=== PATIENT | female | born 1960 | race African-American/Black ===

== ENCOUNTER 2019-01-20 11:06 | Day surgery (SDC) | payer OTHER ==
[2019-01-16 12:01] VITALS: BMI 38.0
[~2019-01-20 11:06] MED LIST: BUPIVACAINE HCL/PF 0.25% (2.5MG/ML) 10 ML VIAL IJ ONE; IOHEXOL 180 MG/1 ML ML IJ ONE; SODIUM BICARBONATE 8.4% 50 MEQ/50 ML DISP.SYRIN IV ONE; TRIAMCINOLONE ACETONIDE 40 MG/ML 10 ML VIAL IJ ONE
[2019-01-20] MEDS ORDERED: ONDANSETRON 4 MG/2 ML VIAL IVPUSH PRN (13:32)
[2019-01-20] MEDS ORDERED: oxyCODONE HCL 5 MG TABLET PO PRN (13:32)
[2019-01-20] MEDS ORDERED: LACTATED RINGERS SOLUTION 1,000 ML IV SCH (13:45)
[2019-01-20] MEDS ORDERED: MIDAZOLAM HCL 2 MG/2 ML SINGLE DOSE VIAL ONE ×3 (14:18→15:14)
[2019-01-20] MEDS ORDERED: LIDOCAINE HCL 1% PRESERVATIVE FREE - 30ML VIAL ONE (14:37)
[2019-01-20] MEDS ORDERED: BUPIVACAINE HCL 0.25% 125 MG/50 ML VIAL ONE (14:37)
[2019-01-20] MEDS ORDERED: TRIAMCINOLONE ACET 40MG/1ML VIAL ONE (14:37)
[2019-01-20] MEDS ORDERED: SODIUM BICARBONATE 8.4% 50 MEQ/50 ML VIAL ONE (14:40)
[2019-01-20] MEDS ORDERED: SODIUM BICARBONATE 8.4% 50 MEQ/50 ML DISP.SYRIN IV ONE (15:17)
[2019-01-20] MEDS ORDERED: TRIAMCINOLONE ACETONIDE 40 MG/ML 10 ML VIAL IJ ONE (15:17)
[2019-01-20] MEDS ORDERED: BUPIVACAINE HCL/PF 0.25% (2.5MG/ML) 10 ML VIAL IJ ONE (15:17)
[2019-01-20] MEDS ORDERED: IOHEXOL 180 MG/1 ML ML IJ ONE (15:17)
[2019-01-20 15:34] VITALS: TEMP 98.3
[2019-01-20 16:37] VITALS: BP 136/61; PULSE 63
--- NOTE | 2019-01-21 09:16 | OP ---
DATE OF OPERATION: PROCEDURE PERFORMED: Cervical Epidural Steroid Injection. DIAGNOSIS/INDICATION: Upper extremity radiculopathy. CONSENT: The procedure was explained and all questions answered. Risks discussed include bleeding, allergy, infection, and inadvertent puncture of the dura. Informed, written consent was obtained. DEALER DEVELOPMENT MANAGER: Andrea Box MD TECHNIQUE: The patient was prepped and draped in the usual sterile fashion. Using fluoroscopic guidance, the C6-7 interspinous space was localized, and the overlying skin and subcutaneous soft tissues were locally anesthetized with 1% Lidocaine. A 20-gauge epidural needle was advanced into the epidural space using [id number] technique. Epidurogram was performed using 5 mL Omnipaque contrast injected into the epidural space to verify needle tip position and to visualize epidural space and nerve root in AP and lateral views. Contrast spread was seen. A lateral spot radiograph was obtained. Depo-Medrol of 40 mg and 2 mL normal saline were injected into the epidural space and the needle was removed. The procedure was well tolerated. There were no immediate complications. Nonionic contrast was used because of the possibility of intrathecal administration. POSTOPERATIVE DIAGNOSIS: Cervical epidural steroid injection for cervical radiculopathy. Tiffanie [id number]
== END 2019-01-20 16:39 | disposition home or self-care (01) ==
LOC: FASU 11:06
PROVIDERS: ATTEND Pain Medicine Interventional Pain Medicine
PROC: B01BYZZ Fluoroscopy of Spinal Cord using Other Contrast (ICD-10-PCS; 2019-01-20)
PROC: 3E0R33Z Introduction of Anti-inflammatory into Spinal Canal, Percutaneous Approach (ICD-10-PCS; principal; 2019-01-20 15:09)
DX: M54.12 Radiculopathy, cervical region (principal)